=== PATIENT | male | born 1980 | race Two or more races ===

== ENCOUNTER 2024-03-01 13:38 | Inpatient (IN) | payer MEDICAID ==
[~2024-03-01] VITALS: Ht 167.6 cm; Wt 85.1 kg
--- NOTE | 2024-03-01 14:15 | ED.PDOC ---
History of Present Illness HPI Comments A 44 YEAR OLD MALE PRESENTS TO THE ED WITH COMPLAINT OF HIGH BLOOD SUGAR. PATIENT STATES HE HAS BEEN EXPERIENCING HIGH BLOOD SUGAR LEVELS, MILD DIZZINESS, INCREASED THIRST/DRY MOUTH, AND OCCASIONAL HEADACHE FOR THE PAST 4 DAYS. PATIENT REPORTS HE WAS BLOOD SUGAR WAS MEASURING IN THE 400S OVER THE LAST FEW DAYS. PATIENT'S CURRENT BLOOD SUGAR IS 298 WHEN CHECKED AT TRIAGE. PATIENT DENIES VISION CHANGES, FEVER, CHILLS, SHORTNESS OF BREATH, CHEST PAIN, ABDOMINAL PAIN, NAUSEA, VOMITING, OR OTHER COMPLAINTS. NO OTHER SYMPTOMS OR MODIFYING FACTORS AT THIS TIME. PATIENT IS ALERT, ORIENTED X 4, AND HAS STEADY GAIT. Chief Complaint: Hyperglycemia Time Seen by MD: 13:50 Reviewed Notes: Nurses Notes, Medications, Allergies Allergies: Coded Allergies: NO KNOWN ALLERGIES (Unverified , 03/01/24) Information Source: Patient Mode of Arrival: Ambulatory Severity: Moderate Timing: Days Duration: Since onset, Days Prehospital treatment: None Medication Refill: For: Other (HIGH BLOOD SUGAR) Past Medical History PAST MEDICAL HISTORY: Denies Surgical History: Denies all surgeries Family History Family History: Reviewed,noncontributory to illness Social History Smoker: Non-Smoker Alcohol: Denies ETOH Use Drugs: Denies Drug Use Lives In: Home Constitutional: denies: chills, diaphoresis, fatigue, fever, malaise, sweats, weakness, others EENTM: denies: blurred vision, double vision, ear bleeding, ear discharge, ear drainage, ear pain, ear ringing, eye pain, eye redness, hearing loss, mouth pain, mouth swelling, nasal discharge, nose bleeding, nose congestion, nose pain, photophobia, tearing, throat pain, throat swelling, voice changes, others Respiratory: denies: cough, hemoptysis, orthopnea, SOB at rest, shortness of breath, SOB with excertion, stridor, wheezing, others Cardiovascular: denies: chest pain, dizzy spells, diaphoresis, Dyspnea on exertion, edema, irregular heart beat, left arm pain, lightheadedness, palpitations, PND, syncope, others Gastrointestinal: denies: abdomen distended, abdominal pain, blood streaked bowels, constipated, diarrhea, dysphagia, difficulty swallowing, hematemesis, melena, nausea, poor appetite, poor fluid intake, rectal bleeding, rectal pain, vomiting, others Genitourinary: reports: frequency; denies: burning, dysuria, flank pain, hematuria, incontinence, penile discharge, penile sore, pain, testicle pain, testicle swelling, urgency, others Neurological: reports: dizziness, headache; denies: fainting, left sided n umbness, left sided weakness, numbness, paresthesia, pre-existing deficit, right sided numbness, right sided weakness, seizure, speech problems, tingling, tremors, weakness, others Musculoskeletal: denies: back pain, gout, joint pain, joint swelling, muscle pain, muscle stiffness, neck pain, others Integumetry: denies: bruises, change in color, change in hair/nails, dryness, laceration, lesions, lumps, rash, wounds, others Allergic/Immunocompromised: denies: Difficulty Healing, Frequent Infections, Hives, Itching, others Hematologic/Lymphatic: denies: anemia, blood clots, easy bleeding, easy bruising, swollen glands, others Endocrine: reports: excessive thirst, others (HYPERGLYCEMIA); denies: excessive hunger, excessive sweating, excessive urination, flushing, intolerance to cold, intolerance to heat, unexplained weight gain, unexplained weight loss Psychiatric: denies: anxiety, bipolar disorder, depression, hopeless, panic disorder, schizophrenia, sleepless, suicidal, others All Other Systems: Reviewed and Negative Physical Exam General Appearance: No Apparent Distress, Obese HEENT: Normal ENT Inspection, PERRL/EOMI, Pharynx Normal, TMs Normal Neck: Full Range of Motion, Non-Tender, Normal, Normal Inspection Respiratory: Chest Non-Tender, Lungs Clear, No Accessory Muscle Use, No Respiratory Distress, Normal Breath Sounds Cardiovascular: No Edema, No JVD, No Murmur, No Gallop, Normal Peripheral Pulses, Regular Rate/Rhythm Breast Exam: Deferred Gastrointestinal: No Organomegaly, Non Tender, No Pulsatile Mass, Normal Bowel Sounds, Soft Genitalia: Deferred Pelvic: Deferred Rectal: Deferred Extremities: No calf tenderness, Normal capillary refill, Normal inspection, Normal range of motion, Non-tender, No pedal edema Musculoskeletal : Apperance: Normal Neurologic: Alert, calibration tester II-XII nml as Tested, No Motor Deficits, Normal Affect, Normal Mood, No Sensory Deficits Cerebellar Function: Normal Reflexes: Normal Skin: Dry, Normal Color, Warm Peripheral Pulses: 2+ carotid (R), 2+ carotid (L) Lymphatic: No Adenopathy Was a procedure done? Was a procedure done?: No Differential Dx Considerations may include: HYPERGLYCEMIA, NEW ONSET DIABETES, DEHYDRATION, ELECTROLYTE IMBALANCE X-Ray, Labs, Meds, VS Vital Signs Date Time Temp Pulse Resp B/P (MAP) Pulse Ox O2 Delivery O2 Flow Rate FiO2 03/01/24 17:31 78 16 161/101 (121) 97 03/01/24 15:23 84 18 166/101 (122) 95 03/01/24 15:17 97.8 85 20 150/128 (135) 95 97.8 03/01/24 15:17 85 20 95 Room Air* 0 21 03/01/24 13:52 97.0 85 20 167/98 (121) 95 Lab Test 03/01/24 14:01 03/01/24 13:47 Range/Units White Blood Count 5.4 4.4-10.8 10^3/uL Red Blood Count 5.25 4.5-5.90 10^6/uL Hemoglobin 16.3 13.5-17.5 g/dL Hematocrit 46.0 41.0-53.0 % Mean Corpuscular Volume 87.7 80.0-100.0 fL Mean Corpuscular Hemoglobin 31.0 28.0-32.0 pg Mean Corpuscular Hemoglobin Concent 35.4 32.0-36.0 g/dL Red Cell Distribution Width 12.8 11.8-14.3 % Platelet Count 151 140-450 10^3/uL Mean Platelet Volume 11.2 H 6.9-10.8 fL Neutrophils (%) (Auto) 63.5 37.0-80.0 % Lymphocytes (%) (Auto) 27.8 10.0-50.0 % Monocytes (%) (Auto) 6.5 0.0-12.0 % Eosinophils (%) (Auto) 1.8 0.0-7.0 % Basophils (%) (Auto) 0.4 0.0-2.0 % Neutrophils # (Auto) 3.5 1.6-8.6 10 ^3/uL Lymphocytes # (Auto) 1.5 0.4-5.4 10 ^3/uL Monocytes # (Auto) 0.4 0-1.3 10 ^3/uL Eosinophils # (Auto) 0.1 0-0.8 10 ^3/uL Basophils # (Auto) 0 0-0.2 10 ^3/uL Nucleated Red Blood Cells 0.3 % Sodium Level 138 136-145 mmol/L Potassium Level 3.9 3.5-5.1 mmol/L Chloride Level 103 98-107 mmol/L Carbon Dioxide Level 25 20-31 mmol/L Anion Gap 10 5-15 Blood Urea Nitrogen 15 9-23 mg/dL Creatinine 0.97 0.700-1.30 mg/dL Glomerular Filtration Rate Calc 99 >90 mL/min BUN/Creatinine Ratio 15.5 10.0-20.0 Serum Glucose 343 H 74-106 mg/dL Hemoglobin A1c 12.0 H <5.7 % A1C Calcium Level 9.8 8.7-10.4 mg/dL Beta-Hydroxybutyric Acid 0.970 H < 0.4 mmol/L POC Glucose 298 H 70-106 mg/dl Current Medications Medications (Trade) Dose Ordered Sig/Charity Route Start Time Stop Time Status Last Admin Sodium Chloride 1,000 ml @ 1,000 mls/hr Q1H ONCE IV 03/01/24 15:45 03/01/24 16:44 DC 03/01/24 16:38 Insulin Human Regular (InsuLIN R) 8 units ONCE ONCE IV 03/01/24 15:45 03/01/24 15:46 DC 03/01/24 16:39 X-Ray, Labs, Meds, VS Comment EXTERNAL NOTES: NONE LABS ORDERED: CBC, BMP, UA, BHB, HGB A1C REVIEWED AND INTERPRETED RESULTS: GLUCOSE 343, HEMOGLOBIN A1C 12.0, BHB 0.970 IMAGING ORDERED: NONE INDEPENDENT HISTORIANS: PATIENT'S /SPOUSE TREATMENTS ORDERED: NS 2L IV, INSULIN 8 UNITS IV PATIENT'S CASE AND RESULTS HAVE BEEN DISCUSSED WITH THE ED ATTENDING PHYSICIAN AND THEY AGREE WITH MY PLAN OF CARE. DUE TO THE PATIENT'S LABS REVEALING NEW ONSET DIABETES, I HAVE DETERMINED THAT THE PATIENT SHOULD BE ADMITTED FOR FURTHER TREATMENT AND EVALUATION. UPON MY PHYSICAL EXAMINATION, THE PATIENT WAS WELL-APPEARING AND HAD NO SIGNS OF DISTRESS OR SIGNS OF DKA AT THIS TIME. PATIENT WAS INFORMED THAT I WOULD LIKE T O ADMIT HIM FOR FURTHER TREATMENT AND EVALUATION OF HIS NEW ONSET DIABETES AND HE AGREED TO BE ADMITTED. THE ON-CALL HOSPITALIST WILL BE CONTACTED FOR ADMISSION OF THIS PATIENT. Time of 1ST Reevaluation: 17:35 Reevaluation 1ST: Improved Patient Education/Counseling: Diagnosis, Treatment Family Education/Counseling: Diagnosis, Treatment Departure 1 Departure Time of Disposition: 17:35 Impression: Primary Impression: New onset type 2 diabetes mellitus Additional Impression: HTN (hypertension) Qualified Codes: I10 - Essential (primary) hypertension Disposition: ADMITTED INPATIENT Admit to: Med Surg Condition: Serious Critical Care Note Critical Care Time?: No Stability Stability form required: No I personally scribed for REBECCA CASTANO ([email or web address]) on 03/01/24 at 14:15. [employer] ctronically submitted by Kelvin Mccoy ([facility]). I personally scribed for REBECCA CASTANO ([email or web address]) on 03/01/24 at 17:06. [employer] ctronically submitted by Kelvin Mccoy ([email or web address]). I personally scribed for REBECCA CASTANO ([email or web address]) on 03/01/24 at 17:13. [employer] ctronically submitted by Kelvin Mccoy ([email or web address]). REBECCA CASTANO Mar 01, 2024 14:15
[2024-03-01 14:20] LABS: Basophils # (auto) 0 10 ^3/uL (0-0.2); Basophils % (auto) 0.4 % (0.0-2.0); Eosinophils # (auto) 0.1 10 ^3/uL (0-0.8); Eosinophils % (auto) 1.8 % (0.0-7.0); Hemoglobin 16.3 g/dL (13.5-17.5); Lymphocytes # (auto) 1.5 10 ^3/uL (0.4-5.4); Lymphocytes % (auto) 27.8 % (10.0-50.0); Mean Corpuscular Hgb Conc. 35.4 g/dL (32.0-36.0); Mean Corpuscular Volume 87.7 fL (80.0-100.0); Monocytes # (auto) 0.4 10 ^3/uL (0-1.3); Monocytes % (auto) 6.5 % (0.0-12.0); Neutrophils # (auto) 3.5 10 ^3/uL (1.6-8.6); Neutrophils % (auto) 63.5 % (37.0-80.0); Nucleated Red Blood Cells % 0.3 %; Platelet Count (auto) 151 10^3/uL (140-450); Red Blood Cells 5.25 10^6/uL (4.5-5.90); Red Cell Distribution Width 12.8 % (11.8-14.3); White Blood Cell 5.4 10^3/uL (4.4-10.8)
[2024-03-01 14:25] LABS: Chloride 103 mmol/L (98-107); Potassium 3.9 mmol/L (3.5-5.1); Sodium 138 mmol/L (136-145)
[2024-03-01 14:26] LABS: Anion Gap 10 (5-15); Calcium 9.8 mg/dL (8.7-10.4); Carbon Dioxide 25 mmol/L (20-31)
[2024-03-01 14:31] LABS: BUN/Creatinine Ratio 15.5 (10.0-20.0); Blood Urea Nitrogen 15 mg/dL (9-23)
[2024-03-01 14:40] LABS: Glucose 343 mg/dL (74-106)
[2024-03-01 15:17] VITALS: PULSE 85; RESP 20; O2SAT 95
[2024-03-01] MEDS: SODIUM CHLORIDE 0.9% 1,000 ML IV ONE ×2 (16:38→17:50)
[2024-03-01] MEDS: InsuLIN REG 1unit/0.01ml Soln (100units/ml) IV ONE (16:39)
[2024-03-01] MEDS: hydrALAZINE HCL 20 MG/ML VL IV ONE (17:48)
[2024-03-01] MEDS: SODIUM CHLORIDE 0.9% 1,000 ML IV SCH (19:45)
[2024-03-01] MEDS ORDERED: MAALOX PLUS or MAALOX 30 ML PO PRN (19:45)
[2024-03-01] MEDS ORDERED: HYDROcodone-ACET 5/325MG TAB PO PRN (19:45)
[2024-03-01] MEDS ORDERED: MORPHINE SULFATE INJ 2 MG/ml SYRG IV PRN (19:45)
[2024-03-01] MEDS ORDERED: DOCUSATE SOD 100 MG CAP PO PRN (19:45)
[2024-03-01] MEDS ORDERED: LORazepam 0.5 MG TAB PO PRN (19:45)
[2024-03-01] MEDS ORDERED: DEXTROSE (50%) 50ML SYRG IV PRN (19:45)
[2024-03-01] MEDS ORDERED: ONDANSETRON HCL 4 MG/2 ML VIAL IV PRN (19:45)
[2024-03-01 20:00] VITALS: PULSE 85; RESP 18
--- NOTE | 2024-03-01 20:08 | DVHHP2 ---
History of Present Illness Reason for Visit: High blood sugar History of Present Illness 44-year-old obese patient came in with complaints of stating that his sugar was high patient states that with a high sugar had multiple symptoms including dizziness weakness excessive thirst urinating a lot headaches for the past few days which have been getting worse and worse patient states that he is new to being diabetic but has noted that his sugars are greater than 400 over the last few days when patient was evaluated in the ED sugars were around 300 or so patient seemed to be struggling with all of the symptoms of hypoglycemia and was recommended for admission for continued management and care Endocrine: Diabetes Review of Systems Constitutional: Yes: Weakness; No: Fever, Chills, Sweats, Malaise, Other Eyes: No: Pain, Vision change, Conjunctivae inflammation, Eyelid inflammation, Other, Redness ENT: No: Ear pain, Ear discharge, Nose pain, Nose discharge, Nose congestion, Mouth pain, Mouth swelling, Throat pain, Throat swelling, Other Respiratory: No: Cough, Dry, Shortness of breath, SOB with excertion, Wheezing, Hemoptysis, Pleuritic Pain, Sputum, Wheezing, Other Cardiovascular: Palpitations; No: Chest Pain, Orthopnea, Paroxysmal Noc. Dyspnea, Edema, Lt Headedness, Other Gastrointestinal: No: Nausea, Vomiting, Abdominal Pain, Diarrhea, Constipation, Melena, Hematochezia, Other Genitourinary: Dysuria, Frequency; No Incontinence, No Hematuria, No Retention, No Other Musculoskeletal: No: other, neck pain, shoulder pain, arm pain, back pain, hand pain, leg pain, foot pain Skin: No: Rash, Lesions, Jaundice, Bruising, Other Neurological: No: Weakness, Numbness, Incoordination, Change in speech, Confusion, Seizures, Other Allergies: Coded Allergies: NO KNOWN ALLERGIES (Unverified , 03/01/24) Exam Vital Signs Vital Signs Date Time Temp Pulse Resp B/P (MAP) Pulse Ox O2 Delivery O2 Flow Rate FiO2 03/01/24 17:48 161/101 03/01/24 17:31 78 16 97 03/01/24 15:17 97.8 97.8 03/01/24 15:17 Room Air* 0 21 General Appearance: Alert, Oriented X3, moderate distress HEENT: Atraumatic, PERRLA Respiratory: Clear to auscultation, Normal air movement Cardiovascular: Regular rate, Normal S1, Normal S2 Abdominal: Normal bowel sounds, Soft, No tenderness Extremities: No clubbing, No cyanosis, No edema Skin: No rashes, No breakdown, No significant lesion Neuro: Normal gait, Normal speech Psych/Mental Status: Mood NL Labs/Xrays Labs Test 03/01/24 17:25 03/01/24 14:01 Range/Units POC Glucose 251 H 70-106 mg/dl White Blood Count 5.4 4.4-10.8 10^3/uL Red Blood Count 5.25 4.5-5.90 10^6/uL Hemoglobin 16.3 13.5-17.5 g/dL Hematocrit 46.0 41.0-53.0 % Mean Corpuscular Volume 87.7 80.0-100.0 fL Mean Corpuscular Hemoglobin 31.0 28.0-32.0 pg Mean Corpuscular Hemoglobin Concent 35.4 32.0-36.0 g/dL Red Cell Distribution Width 12.8 11.8-14.3 % Platelet Count 151 140-450 10^3/uL Mean Platelet Volume 11.2 H 6.9-10.8 fL Neutrophils (%) (Auto) 63.5 37.0-80.0 % Lymphocytes (%) (Auto) 27.8 10.0-50.0 % Monocytes (%) (Auto) 6.5 0.0-12.0 % Eosinophils (%) (Auto) 1.8 0.0-7.0 % Basophils (%) (Auto) 0.4 0.0-2.0 % Neutrophils # (Auto) 3.5 1.6-8.6 10 ^3/uL Lymphocytes # (Auto) 1.5 0.4-5.4 10 ^3/uL Monocytes # (Auto) 0.4 0-1.3 10 ^3/uL Eosinophils # (Auto) 0.1 0-0.8 10 ^3/uL Basophils # (Auto) 0 0-0.2 10 ^3/uL Nucleated Red Blood Cells 0.3 % Sodium Level 138 136-145 mmol/L Potassium Level 3.9 3.5-5.1 mmol/L Chloride Level 103 98-107 mmol/L Carbon Dioxide Level 25 20-31 mmol/L Anion Gap 10 5-15 Blood Urea Nitrogen 15 9-23 mg/dL Creatinine 0.97 0.700-1.30 mg/dL Glomerular Filtration Rate Calc 99 >90 mL/min BUN/Creatinine Ratio 15.5 10.0-20.0 Serum Glucose 343 H 74-106 mg/dL Hemoglobin A1c 12.0 H <5.7 % A1C Calcium Level 9.8 8.7-10.4 mg/dL Beta-Hydroxybutyric Acid 0.970 H < 0.4 mmol/L Assessment/Plan Assessment/Plan Admit to [facility] Patient with suspected new onset diabetes versus uncontrolled diabetes Patient with patient with severe hyperglycemia Elevated glucose greater than 400 as per patient IV hydration Insulin sliding scale aggressive Patient was given 8 units in the ED We will aggressively flush patient's system No acute stated history of CHF Plan discussed with: Patient My Orders Orders - MOOK KEATING MD Procedure Category Date Status Time Hydralazine Injection PHA 03/01/24 Logged (Apresoline Inject 19:45 Glucose Blood PHA 03/01/24 Logged (Accu-Chek Comfort 20:00 Insulin R (Human) PHA 03/01/24 Logged (Insulin R) 20:00 Dextrose 50% Syringe PHA 03/01/24 Logged 19:45 Admit ADMIT 03/01/24 Transmitted 19:38 Code Status CODE 03/01/24 Transmitted 19:38 Vital Signs [facility] 03/01/24 In Process 19:38 Review Orders With [facility]NY 03/01/24 In Process Adm. 19:38 Consistent DIET 03/02/24 Transmitted Carb(Ccho)Diabetes Breakfast Sodium Chloride 0.9% PHA 03/01/24 Logged 19:45 Lorazepam Tablet [facility] 03/01/24 Logged (Ativan Tablet) 19:45 Alum & Mag [facility] 03/01/24 Logged Hydrox-Simethicone 19:45 Docusate Sodium [facility] 03/01/24 Logged Capsule (Colace 19:45 Acetaminophen Tablet PHA 03/01/24 Logged (Tylenol Tablet) 19:45 Temazepam (Restoril) PHA 03/01/24 Logged 19:45 Notify Md Of Changes [facility] 03/01/24 In Process From Base 19:38 Advance Directive [facility] 03/01/24 In Process 19:38 Basic Metabolic Panel LAB 03/02/24 Verified 04:00 Complete Blood Count LAB 03/02/24 Verified 04:00 Patient Condition ORDERS 03/01/24 Transmitted 19:38 Allergies [facility] 03/01/24 In Process 19:38 Hydrocodone-Acet PHA 03/01/24 Logged 5/325mg Tab ([place] 19:45 Ondansetron Hcl PHA 03/01/24 Logged (Zofran) 19:45 Morphine Sulfate PHA 03/01/24 Logged Injection 19:45 Notify Md Of Changes [facility] 03/01/24 In Process From Base 19:38 Professional Development Director For [facility] 03/01/24 In Process 24 Hours 19:38 Oxygen By Nasal RT 03/01/24 Transmitted Cannula 19:38 Problem List: (1) New onset type 2 diabetes mellitus (2) HTN (hypertension) Date of Service: Mar 01, 2024 Billing Provider: MOOK KEATING MD Common Visit Codes: [id number] INP/OBS CARE (HIGH) MOOK KEATING MD Mar 01, 2024 20:08
[2024-03-01] MEDS: ACCU-CHEK COMFORT CURVE STRIP VI SCH (20:42)
[2024-03-01] MEDS: InsuLIN REG 1unit/0.01ml Soln (100units/ml) SC SCH (20:47)
[2024-03-01] MEDS: hydrALAZINE HCL 20 MG/ML VL IV PRN (21:46)
[2024-03-01 21:49] LABS: Urine Bacteria None Seen /hpf (None Seen)
[2024-03-01 21:58] LABS: Urine Blood Negative /uL (Negative); Urine Clarity Clear (Clear); Urine Color Light-Yellow (Yellow); Urine Protein, UAD Negative (Negative); Urine Specific Gravity 1.018 (1.001-1.035); Urine Urobilinogen Normal (Negative); Urine WBC 1 /hpf (0 - 3)
[2024-03-02 01:55] VITALS: BP 149/83; PULSE 90; RESP 18; TEMP 98.9; O2SAT 96
[2024-03-02] MEDS: ACETAMINOPHEN 325 MG TAB PO PRN (02:02)
[2024-03-02 05:39] VITALS: BP 160/83; PULSE 81; RESP 20; TEMP 97.3; O2SAT 94
[2024-03-02 05:42] VITALS: BP 150/80
[2024-03-02 05:48] VITALS: BP 150/80
[2024-03-02 07:31] VITALS: RESP 18; O2SAT 95
[2024-03-02 07:36] LABS: Basophils # (auto) 0 10 ^3/uL (0-0.2); Basophils % (auto) 0.4 % (0.0-2.0); Eosinophils # (auto) 0.2 10 ^3/uL (0-0.8); Eosinophils % (auto) 2.3 % (0.0-7.0); Hematocrit 42.3 % (41.0-53.0); Hemoglobin 14.6 g/dL (13.5-17.5); Lymphocytes # (auto) 2.3 10 ^3/uL (0.4-5.4); Lymphocytes % (auto) 34.3 % (10.0-50.0); Mean Corpuscular Hemoglobin 30.5 pg (28.0-32.0); Mean Corpuscular Hgb Conc. 34.6 g/dL (32.0-36.0); Monocytes # (auto) 0.5 10 ^3/uL (0-1.3); Neutrophils # (auto) 3.7 10 ^3/uL (1.6-8.6); Nucleated Red Blood Cells % 0.1 %; Platelet Count (auto) 151 10^3/uL (140-450); Red Cell Distribution Width 13.2 % (11.8-14.3); White Blood Cell 6.7 10^3/uL (4.4-10.8)
[2024-03-02 07:47] LABS: Chloride 107 mmol/L (98-107); Sodium 140 mmol/L (136-145)
[2024-03-02 07:48] LABS: Anion Gap 10 (5-15); Carbon Dioxide 23 mmol/L (20-31)
[2024-03-02 07:49] LABS: Calcium 9.7 mg/dL (8.7-10.4)
[2024-03-02 07:54] LABS: BUN/Creatinine Ratio 11.6 (10.0-20.0)
[2024-03-02 07:59] LABS: Blood Urea Nitrogen 8 mg/dL (9-23); Glucose 186 mg/dL (74-106); Potassium 3.3 mmol/L (3.5-5.1)
--- NOTE | 2024-03-02 13:31 | DVHPN2 ---
Reviewed: Care Plan, H&P, Labs, Medications, Previous Orders, Radiology Changes from previous H/P or p: No Changes Eyes: No Pain, No Vision change, No Conjunctivae inflammation, No Eyelid inflammation, No Other, No Redness ENT: No Ear pain, No Ear discharge, No Nose pain, No Nose discharge, No Nose congestion, No Mouth pain, No Mouth swelling, No Throat pain, No Throat swelling, No Other Cardiovascular: No Chest Pain; Palpitations; No Orthopnea, No Paroxysmal Noc. Dyspnea, No Edema, No Lt Headedness, No Other Respiratory: No Cough, No Dry, No Shortness of breath, No SOB with excertion, No Wheezing, No Hemoptysis, No Pleuritic Pain, No Sputum, No Other Gastrointestinal: No Nausea, No Vomiting, No Abdominal Pain, No Diarrhea, No Constipation, No Melena, No Hematochezia, No Other Genitourinary: Dysuria, Frequency; No Incontinence, No Hematuria, No Retention, No Other Musculoskeletal: No other, No neck pain, No shoulder pain, No arm pain, No back pain, No hand pain, No leg pain, No foot pain Skin: No Rash, No Lesions, No Jaundice, No Bruising, No Other Objective Vitals Vital Signs Date Time Temp Pulse Resp B/P (MAP) Pulse Ox O2 Delivery O2 Flow Rate FiO2 03/02/24 10:00 98.6 77 16 165/106 (125) 96 98.6 03/02/24 07:31 Room Air* 0 21 Intake/Output Intake and Output 03/02/24 07:00 Intake Total 2000 ml Balance 2000 ml Intake IV Total 2000 ml Medications Current Medications Medications Dose Ordered Sig/Charity Route Start Time Stop Time Status Last Admin Dose Admin Hydralazine HCl 10 mg Q6HPRN PRN IV 03/01/24 19:45 03/01/24 21:46 10 MG Diagnostic Test (Pha) 1 strip IQ4HR 03/01/24 20:00 03/02/24 10:56 1 STRIP Insulin Human Regular IQ4HR SC 03/01/24 20:00 03/02/24 11:00 16 UNITS Dextrose 50 ml UD PRN IV 03/01/24 19:45 Sodium Chloride 1,000 ml @ 100 mls/hr Q10H IV 03/01/24 19:45 03/02/24 05:45 100 MLS/HR Lorazepam 0.5 mg Q6HP PRN PO 03/01/24 19:45 Al Hydrox/Mg Hydrox/Simethicone 30 ml Q6HP PRN PO 03/01/24 19:45 Docusate Sodium 100 mg BIDPRN PRN PO 03/01/24 19:45 Acetaminophen 650 mg Q6HP PRN PO 03/01/24 19:45 03/02/24 02:02 650 MG Temazepam 15 mg QHSP PRN PO 03/01/24 19:45 Acetaminophen/ Hydrocodone Bitart 1 tab Q4HP PRN PO 03/01/24 19:45 Ondansetron HCl 4 mg Q4HP PRN IV 03/01/24 19:45 Morphine Sulfate 2 mg Q4HPRN PRN IV 03/01/24 19:45 Laboratory Results Laboratory Tests 03/02/24 07:11 Chemistry Test 03/01/24 14:01 03/02/24 07:11 Calcium Level 9.8 mg/dL (8.7-10.4) 9.7 mg/dL (8.7-10.4) HgA1c, TSH Test 03/01/24 14:01 Hemoglobin A1c 12.0 % A1C (<5.7) H Urinalysis Test 03/01/24 21:25 Urine Color Light-yellow (Yellow) Urine Clarity Clear (Clear) Urine pH 6.0 (5.0-9.0) Urine Specific [place] 1.018 (1.001-1.035) Urine Protein Negative (Negative) Urine Ketones 2+ (Negative) H Urine Blood Negative /uL (Negative) Urine Nitrite Negative (Negative) Urine Bilirubin Negative (Negative) Urine Urobilinogen Normal mg/dL (Negative) Urine Leukocyte Esterase Negative /uL (Negative) Urine RBC None seen /hpf (0 - 3) Urine WBC 1 /hpf (0 - 3) Urine Squamous Epithelial Cells Few /hpf (<5) Urine Bacteria None seen /hpf (None Seen) Urine Glucose 4+ mg/dL (Normal) H Labs and/or images reviewed: Labs reviewed by me, Image(s) reviewed by me Assessment/Plan Assessment/Plan New onset type 2 diabetes: Diabetic education: Insulin aggressive sliding scale Uncontrolled diabetes A1c 12.5 Hypertension Acute dehydration: IV fluids Plan discussed with: Patient Date of Service: Mar 02, 2024 Billing Provider: SOPHIE KING MD Common Visit Codes: [id number] INP/OBS CARE(HIGH) SOPHIE KING MD Mar 02, 2024 13:31
[2024-03-03] VITALS (9 sets, daily range): BP systolic 131–159; BP diastolic 78–98; PULSE 71–85; RESP 16–20; TEMP 97.2–98.4; O2SAT 95–98
--- NOTE | 2024-03-03 14:38 | DVHPN2 ---
Reviewed: Care Plan, H&P, Labs, Medications, Previous Orders, Radiology Changes from previous H/P or p: No Changes Eyes: No Pain, No Vision change, No Conjunctivae inflammation, No Eyelid inflammation, No Other, No Redness ENT: No Ear pain, No Ear discharge, No Nose pain, No Nose discharge, No Nose congestion, No Mouth pain, No Mouth swelling, No Throat pain, No Throat swelling, No Other Cardiovascular: No Chest Pain; Palpitations; No Orthopnea, No Paroxysmal Noc. Dyspnea, No Edema, No Lt Headedness, No Other Respiratory: No Cough, No Dry, No Shortness of breath, No SOB with excertion, No Wheezing, No Hemoptysis, No Pleuritic Pain, No Sputum, No Other Gastrointestinal: No Nausea, No Vomiting, No Abdominal Pain, No Diarrhea, No Constipation, No Melena, No Hematochezia, No Other Genitourinary: Dysuria, Frequency; No Incontinence, No Hematuria, No Retention, No Other Musculoskeletal: No other, No neck pain, No shoulder pain, No arm pain, No back pain, No hand pain, No leg pain, No foot pain Skin: No Rash, No Lesions, No Jaundice, No Bruising, No Other Objective Vitals Vital Signs Date Time Temp Pulse Resp B/P (MAP) Pulse Ox O2 Delivery O2 Flow Rate FiO2 03/03/24 12:52 78 16 137/87 (104) 98 03/03/24 09:46 97.2 97.2 03/03/24 05:00 Room Air* 0 21 Medications Current Medications Medications Dose Ordered Sig/Charity Route Start Time Stop Time Status Last Admin Dose Admin Hydralazine HCl 10 mg Q6HPRN PRN IV 03/01/24 19:45 03/02/24 18:46 10 MG Diagnostic Test (Pha) 1 strip IQ4HR 03/01/24 20:00 03/03/24 12:10 1 STRIP Insulin Human Regular IQ4HR SC 03/01/24 20:00 03/03/24 12:09 12 UNITS Dextrose 50 ml UD PRN IV 03/01/24 19:45 Sodium Chloride 1,000 ml @ 100 mls/hr Q10H IV 03/01/24 19:45 03/03/24 09:14 100 MLS/HR Lorazepam 0.5 mg Q6HP PRN PO 03/01/24 19:45 Al Hydrox/Mg Hydrox/Simethicone 30 ml Q6HP PRN PO 03/01/24 19:45 Docusate Sodium 100 mg BIDPRN PRN PO 03/01/24 19:45 Acetaminophen 650 mg Q6HP PRN PO 03/01/24 19:45 03/02/24 18:45 650 MG Temazepam 15 mg QHSP PRN PO 03/01/24 19:45 Acetaminophen/ Hydrocodone Bitart 1 tab Q4HP PRN PO 03/01/24 19:45 Ondansetron HCl 4 mg Q4HP PRN IV 03/01/24 19:45 Morphine Sulfate 2 mg Q4HPRN PRN IV 03/01/24 19:45 Laboratory Results Laboratory Tests 03/02/24 07:11 Urinalysis Test 03/01/24 21:25 Urine Color Light-yellow (Yellow) Urine Clarity Clear (Clear) Urine pH 6.0 (5.0-9.0) Urine Specific [place] 1.018 (1.001-1.035) Urine Protein Negative (Negative) Urine Ketones 2+ (Negative) H Urine Blood Negative /uL (Negative) Urine Nitrite Negative (Negative) Urine Bilirubin Negative (Negative) Urine Urobilinogen Normal mg/dL (Negative) Urine Leukocyte Esterase Negative /uL (Negative) Urine RBC None seen /hpf (0 - 3) Urine WBC 1 /hpf (0 - 3) Urine Squamous Epithelial Cells Few /hpf (<5) Urine Bacteria None seen /hpf (None Seen) Urine Glucose 4+ mg/dL (Normal) H Labs and/or images reviewed: Labs reviewed by me, Image(s) reviewed by me Assessment/Plan Assessment/Plan New onset type 2 diabetes: Diabetic education: Insulin aggressive sliding scale, we will add Lantus 20 units subQ b.i.d. as the blood sugars still not under control Uncontrolled diabetes A1c 12.5 Hypertension Acute dehydration: IV fluids Plan discussed with: Patient My Orders Orders - SOPHIE KING MD Procedure Category Date Status Time Insulin Lantus PHA 03/03/24 Verified (Glargine) (Lantus) 22:00 Date of Service: Mar 03, 2024 Billing Provider: SOPHIE KING MD Common Visit Codes: [id number] INP/OBS CARE(HIGH) SOPHIE KING MD Mar 03, 2024 14:38
--- NOTE | 2024-03-03 14:58 | ECG ---
Test Date: 2024-03-01 Test Time: 13:55:30 Pat Name: ABBI PALAFOX Department: ER Room: 0278 A Gender: M Scheduling Administrator: SS : [id number] Requested By: REBECCA CASTANO Order Number: [id number] Reading MD: Gagan Rosales Measurements Intervals [place] Rate: 84 P: 52 AK: 128 QRS: 44 QRSD: 92 T: 7 QT: 358 QTc: 424 Interpretive Statements Sinus rhythm Probable LVH with secondary repol abnrm Electronically Signed On 03-05-2024 16:09:30 PST by Gagan Rosales Please click the below link to view image of tracing.
[2024-03-03] MEDS: INSULIN LANTUS (GLARGINE) 1 /0.01ml (100units/ml) SC SCH (22:04)
[2024-03-03] MEDS: TEMAZEPAM 15 MG CAP PO PRN (23:59)
[2024-03-04 01:00] VITALS: BP 144/88; PULSE 88; RESP 18; TEMP 98.2; O2SAT 97
[2024-03-04 05:00] VITALS: BP 138/87; PULSE 72; RESP 18; TEMP 97.8; O2SAT 96
[2024-03-04 08:29] VITALS: BP 112/80; PULSE 54; RESP 20; TEMP 98; O2SAT 98
[2024-03-04] MEDS ORDERED: METF-372 PO (12:09)
[2024-03-04] MEDS ORDERED: METO25TA5 PO (12:10)
--- NOTE | 2024-03-04 12:12 | DVHPN2 ---
Reviewed: Care Plan, H&P, Labs, Medications, Previous Orders, Radiology Changes from previous H/P or p: No Changes Eyes: No Pain, No Vision change, No Conjunctivae inflammation, No Eyelid inflammation, No Other, No Redness ENT: No Ear pain, No Ear discharge, No Nose pain, No Nose discharge, No Nose congestion, No Mouth pain, No Mouth swelling, No Throat pain, No Throat swelling, No Other Cardiovascular: No Chest Pain; Palpitations; No Orthopnea, No Paroxysmal Noc. Dyspnea, No Edema, No Lt Headedness, No Other Respiratory: No Cough, No Dry, No Shortness of breath, No SOB with excertion, No Wheezing, No Hemoptysis, No Pleuritic Pain, No Sputum, No Other Gastrointestinal: No Nausea, No Vomiting, No Abdominal Pain, No Diarrhea, No Constipation, No Melena, No Hematochezia, No Other Genitourinary: Dysuria, Frequency; No Incontinence, No Hematuria, No Retention, No Other Musculoskeletal: No other, No neck pain, No shoulder pain, No arm pain, No back pain, No hand pain, No leg pain, No foot pain Skin: No Rash, No Lesions, No Jaundice, No Bruising, No Other Objective Vitals Vital Signs Date Time Temp Pulse Resp B/P (MAP) Pulse Ox O2 Delivery O2 Flow Rate FiO2 03/04/24 08:29 98.0 54 20 112/80 (91) 98 98.0 03/04/24 08:00 Room Air* 0 21 Intake/Output Intake and Output 03/04/24 07:00 Intake Total 2650 ml Balance 2650 ml Intake Oral 1250 ml IV Total 1400 ml # Voids 6 Medications Current Medications Medications Dose Ordered Sig/Charity Route Start Time Stop Time Status Last Admin Dose Admin Hydralazine HCl 10 mg Q6HPRN PRN IV 03/01/24 19:45 03/02/24 18:46 10 MG Diagnostic Test (Pha) 1 strip IQ4HR 03/01/24 20:00 03/04/24 06:09 1 STRIP Insulin Human Regular IQ4HR SC 03/01/24 20:00 03/04/24 11:44 8 UNITS Dextrose 50 ml UD PRN IV 03/01/24 19:45 Sodium Chloride 1,000 ml @ 100 mls/hr Q10H IV 03/01/24 19:45 03/04/24 06:15 100 MLS/HR Lorazepam 0.5 mg Q6HP PRN PO 03/01/24 19:45 Al Hydrox/Mg Hydrox/Simethicone 30 ml Q6HP PRN PO 03/01/24 19:45 Docusate Sodium 100 mg BIDPRN PRN PO 03/01/24 19:45 Acetaminophen 650 mg Q6HP PRN PO 03/01/24 19:45 03/02/24 18:45 650 MG Temazepam 15 mg QHSP PRN PO 03/01/24 19:45 03/03/24 23:59 15 MG Acetaminophen/ Hydrocodone Bitart 1 tab Q4HP PRN PO 03/01/24 19:45 Ondansetron HCl 4 mg Q4HP PRN IV 03/01/24 19:45 Morphine Sulfate 2 mg Q4HPRN PRN IV 03/01/24 19:45 Insulin Glargine 20 units BID@0700,2200 SC 03/03/24 22:00 03/04/24 06:12 20 UNITS Laboratory Results Laboratory Tests 03/02/24 07:11 Urinalysis Test 03/01/24 21:25 Urine Color Light-yellow (Yellow) Urine Clarity Clear (Clear) Urine pH 6.0 (5.0-9.0) Urine Specific [place] 1.018 (1.001-1.035) Urine Protein Negative (Negative) Urine Ketones 2+ (Negative) H Urine Blood Negative /uL (Negative) Urine Nitrite Negative (Negative) Urine Bilirubin Negative (Negative) Urine Urobilinogen Normal mg/dL (Negative) Urine Leukocyte Esterase Negative /uL (Negative) Urine RBC None seen /hpf (0 - 3) Urine WBC 1 /hpf (0 - 3) Urine Squamous Epithelial Cells Few /hpf (<5) Urine Bacteria None seen /hpf (None Seen) Urine Glucose 4+ mg/dL (Normal) H Labs and/or images reviewed: Labs reviewed by me, Image(s) reviewed by me Assessment/Plan Assessment/Plan New onset type 2 diabetes: Diabetic education: Insulin aggressive sliding scale, we will add Lantus 20 units subQ b.i.d. as the blood sugars still not under control Uncontrolled diabetes A1c 12.5 Hypertension Acute dehydration: IV fluids Plan discussed with: Patient My Orders Orders - SOPHIE KING MD Procedure Category Date Status Time Insulin Lantus PHA 03/03/24 In Process (Glargine) (Lantus) 22:00 Provide Diabetic ORDERS 03/03/24 Transmitted Education 14:57 Discharge DISCHARGE 03/04/24 Verified 12:08 Date of Service: Mar 04, 2024 Billing Provider: SOPHIE KING MD Common Visit Codes: [id number] INP/OBS CARE(HIGH) SOPHIE KING MD Mar 04, 2024 12:12
--- NOTE | 2024-03-04 12:15 | DVHDS2 ---
Discharge Summary Date of Admission Mar 01, 2024 at 19:38 Date of Discharge: Mar 04, 2024 Admitting Diagnosis Generalized weakness Wounds: None Labs/Diagnostic Data: Laboratory Results Test 03/04/24 11:36 03/02/24 07:11 03/01/24 21:25 03/01/24 14:01 POC Glucose 216 mg/dl (70-106) White Blood Count 6.7 10^3/uL (4.4-10.8) Red Blood Count 4.80 10^6/uL (4.5-5.90) Hemoglobin 14.6 g/dL (13.5-17.5) Hematocrit 42.3 % (41.0-53.0) Mean Corpuscular Volume 88.0 fL (80.0-100.0) Mean Corpuscular Hemoglobin 30.5 pg (28.0-32.0) Mean Corpuscular Hemoglobin Concent 34.6 g/dL (32.0-36.0) Red Cell Distribution Width 13.2 % (11.8-14.3) Platelet Count 151 10^3/uL (140-450) Mean Platelet Volume 10.9 fL (6.9-10.8) Neutrophils (%) (Auto) 56.0 % (37.0-80.0) Lymphocytes (%) (Auto) 34.3 % (10.0-50.0) Monocytes (%) (Auto) 7.0 % (0.0-12.0) Eosinophils (%) (Auto) 2.3 % (0.0-7.0) Basophils (%) (Auto) 0.4 % (0.0-2.0) Neutrophils # (Auto) 3.7 10 ^3/uL (1.6-8.6) Lymphocytes # (Auto) 2.3 10 ^3/uL (0.4-5.4) Monocytes # (Auto) 0.5 10 ^3/uL (0-1.3) Eosinophils # (Auto) 0.2 10 ^3/uL (0-0.8) Basophils # (Auto) 0 10 ^3/uL (0-0.2) Nucleated Red Blood Cells 0.1 % Sodium Level 140 mmol/L (136-145) Potassium Level 3.3 mmol/L (3.5-5.1) Chloride Level 107 mmol/L (98-107) Carbon Dioxide Level 23 mmol/L (20-31) Anion Gap 10 (5-15) Blood Urea Nitrogen 8 mg/dL (9-23) Creatinine 0.69 mg/dL (0.700-1.30) Glomerular Filtration Rate Calc 118 mL/min (>90) BUN/Creatinine Ratio 11.6 (10.0-20.0) Serum Glucose 186 mg/dL (74-106) Calcium Level 9.7 mg/dL (8.7-10.4) Urine Color Light-yellow (Yellow) Urine Clarity Clear (Clear) Urine pH 6.0 (5.0-9.0) Urine Specific [place] 1.018 (1.001-1.035) Urine Protein Negative (Negative) Urine Ketones 2+ (Negative) Urine Blood Negative /uL (Negative) Urine Nitrite Negative (Negative) Urine Bilirubin Negative (Negative) Urine Urobilinogen Normal mg/dL (Negative) Urine Leukocyte Esterase Negative /uL (Negative) Urine RBC None seen /hpf (0 - 3) Urine WBC 1 /hpf (0 - 3) Urine Squamous Epithelial Cells Few /hpf (<5) Urine Bacteria None seen /hpf (None Seen) Urine Glucose 4+ mg/dL (Normal) Hemoglobin A1c 12.0 % A1C (<5.7) Beta-Hydroxybutyric Acid 0.970 mmol/L (< 0.4) Other Laboratory Tests 03/02/24 07:11 Brief Hx & Hospital Course: 44-year-old male with no previous medical history came in complaining of generalized weakness found to have very high blood sugars III 40 and A1c came up high 12.5. New diagnosis of type 2 diabetes treated with the insulin aggressive sliding scale and Lantus improved well also new onset high blood pressure treated with the medications patient feels better. Being discharged home on metformin for diabetes and metoprolol tartrate for the blood pressure patient was educated about diabetes. Prescription for lancets test strips and Accu-Chek admission given handwritten prescription. Consults/Reason for consult None Operations or Procedures None Condition at Discharge: Fair Final Diagnosis/Problems List New onset type 2 diabetes: Diabetic education: Insulin aggressive sliding scale, we will add Lantus 20 units subQ b.i.d. as the blood sugars still not under control Uncontrolled diabetes A1c 12.5 Hypertension Acute dehydration: IV fluids Discharge Disposition: Home Discharge Instruct/Medications Diet: Consistent carbohydrate Activity: Light activity Follow Up/Referral: Check your Blood sugars 3 times a day Take medications as prescribed Follow up with the discharge clinic in one week Medications: Metformin Metoprolol tartrate Transmitted to [facility]'s 35 (Time Taken for discharge summary 35 minutes) Discharge Statement: "Patient was advised to return to the ER or call 911 if any headaches, dizziness, shortness of breath, chest pain, abdominal pain, bleeding, fevers, or worsening of medical condition. Patient was counseled about treatment plan, medications, possible side effects, patientverbalized understanding. All questions were answered to the best of my ability. This discharge took greater then 30 minutes in planning, reviewing documentation, counseling the patient, and discussing with other team members." ASSESSMENT ASSESSMENT Hospital Course Improved Assessment New onset type 2 diabetes: Diabetic education: Insulin aggressive sliding scale, we will add Lantus 20 units subQ b.i.d. as the blood sugars still not under control Uncontrolled diabetes A1c 12.5 Hypertension Acute dehydration: IV fluids Date of Service: Mar 04, 2024 Billing Provider: SOPHIE KING MD Common Visit Codes: [id number]/[id number] DISCH DAY >30min SOPHIE KING MD Mar 04, 2024 12:15
[2024-03-04 13:00] VITALS: BP 154/99; PULSE 75; RESP 20; TEMP 98; O2SAT 97
[2024-03-04 13:08] VITALS: BP 112/80; PULSE 56; RESP 20; TEMP 98; O2SAT 98
== END 2024-03-04 14:05 | disposition home or self-care (01) | DRG 420 ==
LOC: ER 13:38 → OVERFLOW 19:38 → WEST WING 03-03 14:48
PROVIDERS: ADMIT Hospitalist; ATTEND Family Medicine
DX: E11.65 Type 2 diabetes mellitus with hyperglycemia (principal); E86.0 Dehydration; I10 Essential (primary) hypertension
CPT/HCPCS: 36415; 80048; 81001; 82010; 82962; 83036; 85025; 93005; G0378; J1815